=== PATIENT | male | born 1970 | race Caucasian/White ===

== ENCOUNTER 2019-02-21 07:28 | Emergency (ER) | payer OTHER ==
[~2019-02-21] VITALS: Ht 152.4 cm; Wt 66.0 kg
[~2019-02-21 07:28] MED LIST: IBUP-1542 PO; IBUP-1561 PO
[2019-02-21 07:37] VITALS: BP 119/57; PULSE 70; RESP 18; Ht 152.4 cm; Wt 66.0 kg
[2019-02-21] MEDS ORDERED: NAPR-985 PO (08:48)
--- NOTE | 2019-02-21 08:54 | ERD ---
ER Documentation Chief Complaint Chief Complaint left index finger pain/injury since tuesday HPI 48-year-old male presents with pain to his left index finger. Patient had filled with a hammer 2 days ago. He has some pulsating pain to the left finger. Denies any numbness or tingling. Left hand dominant. Denies medical problems. NKDA. Surgical history denies. Social history denies ROS All systems reviewed and are negative except as per history of present illness. Medications Home Meds Active Scripts Naproxen* (Naprosyn*) 500 Mg Tablet, 500 MG PO BID PRN for PAIN AND/OR INFLAMMATION, #30 TAB Prov:IBETH COLON PA-C 02/21/19 Ibuprofen* (Motrin*) 400 Mg Tab, 400 MG PO Q6, #30 TAB Prov:GERMAINE BRASHER NP 05/24/16 Ibuprofen* (Motrin*) 600 Mg Tab, 600 MG PO Q6, #15 TAB Prov:JOSE MCKEON MD 05/22/16 Allergies Allergies: Coded Allergies: No Known Allergy (Unverified , 05/22/16) PMhx/Soc Medical and Surgical Hx: pt denies Medical Hx, pt denies Surgical Hx Hx Alcohol Use: No Hx Substance Use: No Hx Tobacco Use: No Smoking Status: Never smoker FmHx Family History: No diabetes, No coronary disease, No other Physical Exam Vitals Vital Signs Date Temp Pulse Resp B/P (MAP) Pulse Ox O2 O2 Flow FiO2 Time Delivery Rate 02/21/19 98.3 70 18 119/57 99 07:37 (77) Physical Exam GENERAL: The patient is well-appearing, well-nourished, in no acute distress CHEST: Clear to auscultation bilaterally. There are no rales, wheezes or rhonchi. HEART: Regular rate and rhythm. No murmurs, clicks, rubs or gallops. EXTREMITIES: Equal pulses bilaterally. There is no peripheral clubbing, cyanosis or edema. No focal swelling or erythema. Full range of motion. Grossly neurovascularly intact. NEUROLOGIC: Alert and oriented. Cranial nerves II through XII intact. Motor strength in all 4 extremities with 5 out of 5 strength. Sensation grossly intact. Normal speech and gait. SKIN: Contusion noted under the left index finger nail. No lacerations or abrasions. Procedures/MDM DIAGNOSTIC IMAGING REPORT Patient: DJ JAMES : 1970 Age: 48 Sex: M MR #: [id number] DOS: 02/21/19 0752 Ordering MD: CELESTINA COLON PA-C Location: [facility] Room/Bed: PROCEDURE: Left second finger series CLINICAL INDICATION: Pain TECHNIQUE: AP lateral and oblique images left second finger were obtained COMPARISON: None FINDINGS: No evidence acute fracture dislocation or erosion. No foreign body. Soft tissues unremarkable. IMPRESSION: No acute fracture dislocation or foreign body. MDM: 48-year-old male presenting with pain to his left index finger. I have low suspicion for acute fracture dislocation. Patient does have a subungual hematoma however it is been there for 2 days. No trepanation is done at this time given blood is clotted and it will not elicit drainage. Patient has normal range of motion of the finger at the DIP and PIP joint. I do not feel there is indication for splinting. I have low suspicion for acute fracture dislocation. Patient is discharged with strict ER precautions and told to follow-up with primary care within 1 to 2 days for close evaluation. All questions answered at discharge Departure Diagnosis: Primary Impression: Finger injury Condition: Stable Patient Instructions: Subungual Hematoma, Crush Injury, Hand/Finger Referrals: [facility] YOU HAVE RECEIVED A MEDICAL SCREENING EXAM AND THE RESULTS INDICATE THAT YOU DO NOT HAVE A CONDITION THAT REQUIRES URGENT TREATMENT IN THE EMERGENCY DEPARTMENT. FURTHER EVALUATION AND TREATMENT OF YOUR CONDITION CAN WAIT UNTIL YOU ARE SEEN IN YOUR DOCTORS OFFICE WITHIN THE NEXT 1-2 DAYS. IT IS YOUR RESPONSIBILITY TO MAKE AN APPOINTMENT FOR FOLOW-UP CARE. IF YOU HAVE A PRIMARY DOCTOR --you should call your primary doctor and schedule an appointment IF YOU DO NOT HAVE A PRIMARY DOCTOR YOU CAN CALL OUR PHYSICIAN REFERRAL HOTLINE AT IF YOU CAN NOT AFFORD TO SEE A PHYSICIAN YOU CAN CHOSE FROM THE FOLLOWING [facility] [address] [facility] [address] [facility] [facility] [address] [facility] [address] [facility]. [facility] [address] [facility]. [facility] [address] Additional Instructions: FOLLOW UP WITH YOUR PRIMARY CARE PHYSICIAN TOMORROW.Return to this facility if you are not improving as expected. IBETH COLON PA-C Feb 21, 2019 08:54
== END 2019-02-21 09:00 | disposition home or self-care (01) ==
LOC: FTE 07:28
DX: S60.122A Contusion of left index finger with damage to nail, initial encounter (principal); W27.0XXA Contact with workbench tool, initial encounter; Y92.9 Unspecified place or not applicable
CPT/HCPCS: 73140; Z7502